=== PATIENT | female | born 1985 | race African-American/Black ===

== ENCOUNTER 2018-01-15 10:07 | Day surgery (SDC) | payer OTHER, MEDICAID ==
[2018-01-15 11:02] LABS: HEMATOCRIT 37.5 % (36.0-47.0); HEMOGLOBIN 12.4 g/dL (12.0-15.5); MEAN CORPUSCULAR HEMOGLOBIN 29.9 pg (27.0-33.4); MEAN CORPUSCULAR HGB CONC 33.1 g/dL (32.0-36.0); MEAN CORPUSCULAR VOLUME 90 fl (80-97); PLATELET COUNT 270 10^3/uL (150-450); RED BLOOD COUNT 4.16 10^6/uL (3.72-5.28); RED CELL DISTRIBUTION WIDTH 13.8 % (11.5-14.0); WHITE BLOOD COUNT 11.4 10^3/uL (4.0-10.5)
[2018-01-15] MEDS ORDERED: PROPOFOL INJ 200 MG/20 ML VIAL IV ONE (11:23)
[2018-01-15] MEDS ORDERED: MIDAZOLAM 2 MG/2 ML INJ ONE (11:23)
[2018-01-15] MEDS ORDERED: ACETAMINOPHEN 100 ML IV ONE (11:23)
[2018-01-15] MEDS ORDERED: FENTANYL CITRATE INJ/PF 100 MCG/2 ML AMPUL ONE (11:23)
[2018-01-15] MEDS ORDERED: FENTANYL CITRATE INJ/PF 100 MCG/2 ML AMPUL IV PRN ×3 (11:54)
[2018-01-15] MEDS ORDERED: DIPHENHYDRAMINE HCL 50 MG/ML VIAL IV PRN (11:54)
[2018-01-15] MEDS ORDERED: MEPERIDINE HCL/PF INJ 25 MG/1 ML DISP.SYRIN IV PRN (11:54)
[2018-01-15] MEDS ORDERED: PROMETHAZINE HCL INJ 25 MG/1 ML VIAL IV PRN ×2 (11:54)
[2018-01-15] MEDS ORDERED: OXYCODONE-ACETAMINOPHEN 5-325 MG TABLET PO PRN ×3 (11:54→12:28)
--- NOTE | 2018-01-15 12:00 | Operative Report ---
Operative Report DATE OF SURGERY: 01/15/18 PREOPERATIVE DIAGNOSIS: Missed AB POSTOPERATIVE DIAGNOSIS: Same OPERATION: Suction D&C SURGEON: JOCY MARTINEZ ANESTHESIA: GA TISSUE REMOVED OR ALTERED: Uterine contents COMPLICATIONS: None ESTIMATED BLOOD LOSS: 20 cc INTRAOPERATIVE FINDINGS: Sound 10 cm PROCEDURE: Patient was taken back to the OR placed in supine position. General anesthesia was induced. She is placed in dorsolithotomy position using Valentín stirrups. Perineum and vagina were prepared and draped in sterile fashion. Her bladder did not need draining as she voided prior to going back to the OR. A weighted speculum was placed in the vagina and the anterior lip cervix was grasped with a ring forcep. The cervix was quite flexible. Sounded to 10 cm before and after the case. The cervix is was easily dilated allowing a size 12 suction curette to be placed in the uterine contents evacuated. A gentle sharp curettage at the end of the case revealed no retained products. All instruments were removed. She is placed back in supine position extubated in the OR and taken recovery in stable condition.
[2018-01-15] MEDS ORDERED: KETOROLAC TROMETHAMINE INJ/PF 30 MG/1 ML SDV IV PRN (12:25)
[2018-01-15] MEDS ORDERED: IBUPROFEN 800 MG TABLET PO PRN (12:26)
[2018-01-15] MEDS ORDERED: OXYCODONE-ACETAMINOPHEN 5-325 MG TABLET ONE (12:42)
[2018-01-15] MEDS ORDERED: RINGERS SOLUTION,LACTATED 1,000 ML IV PRN (12:49)
[2018-01-15] MEDS ORDERED: ONDANSETRON HCL INJ/PF 4 MG/2 ML SDV ONE (13:29)
[2018-01-15] MEDS ORDERED: KETOROLAC TROMETHAMINE 60 MG/2 ML SDV ONE (13:29)
[2018-01-15] MEDS ORDERED: METOCLOPRAMIDE HCL INJ/PF 10 MG/2 ML SDV ONE (13:29)
[2018-01-15] MEDS ORDERED: DEXAMETHASONE SOD PHOSPHATE INJ 4 MG/1 ML VIAL ONE (13:29)
[2018-01-15] MEDS ORDERED: LIDOCAINE 2% INJ-PF (20 MG/ML) 2 ML AMPUL ONE (13:29)
[2018-01-15] MEDS ORDERED: SUCCINYLCHOLINE CHLORIDE INJ 200 MG/10 ML VIAL ONE (13:29)
[2018-01-15 18:09] VITALS: BP 110/70
== END 2018-01-15 13:45 | disposition home or self-care (01) ==
LOC: OROUT 10:07
PROVIDERS: ATTEND Obstetrics & Gynecology
DX: O02.1 Missed abortion (principal); F17.210 Nicotine dependence, cigarettes, uncomplicated
CPT/HCPCS: 86900; 86901; 36415; 86850; 85027; 88305 ×2; 59820; J2250; J1100; J1885; J3010; J2765; J0330; J2405; J2704; J0131; J3490; 1965